=== PATIENT | female | born 1945 | race Caucasian/White ===

== ENCOUNTER 2016-03-12 14:13 | Emergency (ER) | payer MEDICARE ==
[~2016-03-12 14:13] MED LIST: Sodium Chloride Irrig Solution 250 ML BOT ONE
--- NOTE | 2016-03-12 15:24 | CT ---
NONCONTRAST HEAD CT HISTORY: The patient was kicked by a horse. COMPARISON: None. TECHNIQUE: A noncontrast head CT was performed from the skull base to the skull vertex. FINDINGS: No parenchymal hemorrhage. No extraaxial hematoma. No midline shift. The basilar cisterns are pat ent. Age appropriate atrophy. Cortical lamar white matter differentiation is preserved. The ventricles a nd sulci are patent and symmetric. There are periventricular white matter hypodensities and chronic small vessel ischemic changes of the white matter. The calvarium is intact. There is an air-fluid level in the sphenoid sinus, likely due to sinus dis ease. The mastoid air cells are adequately aerated. IMPRESSION: 1. No intracranial post traumatic sequela. 2. Chronic small vessel ischemic changes of the white matter. 3. Age-appropriate atrophy. 4. Sphenoid sinus disease. POS: [facility]
--- NOTE | 2016-03-12 15:26 | CT ---
CERVICAL SPINE CT WITHOUT CONTRAST HISTORY: The patient was kicked by a horse. Evaluate for fracture. Post traumatic pain. COMPARISON: None. TECHNIQUE: A cervical spine CT is performed without intravenous or intrathecal contrast administration. Axial images are performed from the skull base to the thoracic inlet. Sagittal coronal reformatted images are submitted for interpretation. FINDINGS: Mild curvature of the cervical spine due to patient position. The lateral masses of C1 and C2 artic ulate appropriately. Appropriate articulation of the intraarticular facets. The odontoid process i s intact. There is no prevertebral soft tissue swelling. There is no epidural hematoma. The centr al spinal canal and neural foramina are patent. Limited evaluation by technique. Upper mediastinum and lung apices are unremarkable. Vertebral body height is maintained, and there is no fracture. IMPRESSION: No fracture. POS: [facility]
[2016-03-12] MEDS ORDERED: Triple Antibiotic Oint 1 GM Packet ONE ×2 (15:29→15:50)
--- NOTE | 2016-03-12 16:00 | RAD ---
ONE VIEW CHEST: History: Patient was kicked by a horse. Comparison: 07-16-15 FINDINGS: Chest one view: Stable left sided transvenous pacemaker. Normal cardiac silhouette. The pulmonary vessels and hilu m are normal. No masses or consolidation. No pneumothorax or osseous abnormality. IMPRESSION: No acute cardiopulmonary process. POS: [facility]
--- NOTE | 2016-03-12 16:01 | RAD ---
LEFT HUMERUS TWO VIEWS: History: Patient was kicked by a horse. Post traumatic pain. Comparison: None. FINDINGS: There are chronic changes involving the left shoulder. An acute fracture is not appreciated. No pe riosteal reaction. IMPRESSION: No fracture. POS: [facility]
[2016-03-12] MEDS ORDERED: Adacel (T-DAP) 0.5 ML VIAL ONE (17:08)
[2016-03-12] MEDS ORDERED: Acetaminophen/Codeine 30-300mg Tablet ONE (17:10)
[2016-03-12] MEDS ORDERED: Cephalexin 500 MG CAP ONE (17:10)
--- NOTE | 2016-03-12 17:44 | PICIS ---
[facility] EMERGENCY RECORD TRIAGE (14:19 MDEB) PATIENT: NAME: Maximus Atwood, AGE: 70, GENDER: female, : Sun1945, TIME OF GREET: Sun Mar 12, 2016 14:13, PREFERRED LANGUAGE: Armenian, RACE: WHITE, ETHNICITY: Not or , ECODE BILLING MAP: [facility], SSN: [id number], Zip Code: [address], KG WEIGHT: 58.97, PHONE: , , , PERSON ID: [id number], PCP: UNKNOWN. (14:19 MDEB) TRIAGE NOTES: KICKED BY HORSE. (14:19 MDEB) COMPLAINT: KICKED BY HORSE. (14:19 MDEB) ADMISSION: URGENCY: 3 Urgent, ADMISSION SOURCE: Home, TRANSPORT: Walk-in, BED: TRIAGE. (14:19 MDEB) ASSESSMENT: Assessment: LARGE SKIN TEAR TO L HUMERUS, L EAR SMALL SKIN TEAR, LACERATION BEHIND L EAR. (14:19 MDEB) PAIN: Patient complains of pain described as, aching, on a scale 0-10 patient rates pain as 7. (14:19 MDEB) TRIAGE SCREENING: Patient denies suicidal ideation, Patient denies presence of domestic violence. (14:19 MDEB) PROVIDERS: TRIAGE NURSE: Gardenia Bradley RN. (14:19 MDEB) VITAL SIGNS: BP 119/88, Pulse 61, Resp 20, Temp 98.4, (Tympanic), Pain 7, O2 Sat 100, on Room Air, Time 03/12/2016 14:18. (14:18 MDEB) PREVIOUS VISIT ALLERGIES: Aleve, HYDROcodone bitartrate (bulk). (14:19 MDEB) KNOWN ALLERGIES Aleve hydrocodone (Unconfirmed) HYDROcodone bitartrate (bulk) naproxen (Unconfirmed) CURRENT MEDICATIONS atorvastatin: TABLET : Strength - 20 mg : ORAL Patient Dose: 1 mg Oral once a day.UNKNOWN DOSE. (14:31 MDEB) meloxicam: TABLET : Strength - 15 mg : ORAL Patient Dose: 1 tab(s) Oral once a day. (14:31 MDEB) propranolol: TABLET : Strength - 20 mg : ORAL Patient Dose: Unknown.UNKNOWN DOSE. (14:33 MDEB) VITAL SIGNS (14:18 MDEB) VITAL SIGNS: BP: 119/88, Pulse: 61, Resp: 20, Temp: 98.4 (Tympanic), Pain: 7, O2 sat: 100 on Room Air, Time: 03/12/2016 14:18. NURSING ASSESSMENT: PRIMARY SURVEY TRAUMA (14:33 MDEB) MECHANISM OF INJURY: Mechanism of injury blunt trauma by, direct blow, KICKED BY HORSE. &a-1R&a+25V*p+0X*[id number]*c202B*c15G*c2P*p-0X&a-25V&a+1R Name: Maximus Atwood : 1945 F70 MedRec: [id number] AcctNum: [id number] Prepared: Cristina Mar 12, 2016 18:01 by Interface Page 1 of 9 pMD [facility] EMERGENCY RECORD AIRWAY AND C-SPINE: Primary trauma survey airway and cervical spine assessment findings include airway patent, Gag reflex intact, Spine immobilized, with cervical collar, Cervical spine tenderness, diffusely, ASPEN C-COLLAR APPLIED. BREATHING: Primary trauma survey breathing assessment findings include trachea midline, Breath sounds equal. CIRCULATION: Primary trauma survey circulation assessment findings include palpable pulse, Heart sounds normal, Systolic blood pressure greater than 100, Capillary refill less than 2 seconds. DISABILITY: Primary trauma survey disability assessment findings include patient alert and oriented to person, place and time, Pupils equally round and reactive to light, Left pupil 3 mm in size, Right pupil 3 mm in size, Movement to all extremities, GCS:, Eye opening: (4) - Spontaneous, Verbal: (5) - Oriented/conversive, Motor: (6) - Obeys commands/Spontaneous, GCS Total: 15. NOTES: Emotional support needed and given, Patient tolerated procedure well. NURSING ASSESSMENT: SECONDARY SURVEY TRAUMA (14:37 MDEB) CONSTITUTIONAL: Patient arrives, via hospital wheelchair, REMOVED FROM PICKUP WITH WHEELCHAIR - PT AMBULATORY, Gait steady, History obtained from patient, Patient appears, anxious, Patient cooperative, Patient alert, Oriented to person, place and time, Skin warm, Skin dry, Skin normal in color, Mucous membranes pink, Mucous membranes moist, Patient is well-groomed, Patient complains of L ARM PAIN, PAIN TO L EAR. PAIN: aching pain, on a scale 0-10 patient rates pain as 7, Pain exacerbated by nothing, Nothing has been tried to alleviate the pain. SKIN: Skin assessment findings include skin warm, Skin dry, Skin normal in color, Inspection findings include ecchymosis, to L EAR, Inspection findings include signs of trauma, SKIN TEARS ET LACERATION. PAIN TO L HUMERUS ET EAR, Notes: LARGE SKIN APPROX 12 CM TO L HUMERUS. SKIN TO L SHAYE APPROX 1.5 CM. LACERATION BEHIND EAR APPROX 4 CM. BURN LOCATION: N/A. NEURO: Pupils equally round and reactive to light, Left pupil 3 mm in size, Right pupil 3 mm in size, Able to close eyes, Face symmetrical, Speech normal, GCS:, Eye opening: (4) - Spontaneous, Verbal: (5) - Oriented/conversive, Motor: (6) - Obeys commands/Spontaneous, GCS Total: 15, Hand grasps equal, Foot press equal, Notes: SLIGHT PAIN TO NECK - IMMOBILZED WITH C-COLLAR. EYES: Eye assessment findings include orbits normal, Eye lids normal, Conjunctiva normal, Sclera normal, Cornea clear, Iris normal, Pupils equally round and reactive to light. DENTAL: Dental assessment findings include mouth normal, Teeth normal. HEAD TRAUMA: Inspection findings include laceration, to &a-1R&a+25V*p+0X*d0167T*c202B*c15G*c2P*p-0X&a-25V&a+1R Name: Maximus Atwood : 1945 F70 MedRec: [id number] AcctNum: [id number] Prepared: Cristnia Mar 12, 2016 18:01 by Interface Page 2 of 9 pMD [facility] EMERGENCY RECORD BEHIND L EAR, length (cm) 3, bleeding controlled. NECK: Neck assessment findings include trachea midline, Pain with range of motion, head immobilization device, with a cervical collar. NECK TRAUMA: Neck trauma assessment findings include trachea midline. RESPIRATORY/CHEST: Breath sounds clear, Respiratory assessment findings include respiratory effort easy, Respirations regular, Conversing normally, Neck and chest exam findings include trachea midline, Chest expansion equal, Chest movement symmetrical. CARDIOVASCULAR: Cardiovascular assessment findings include heart rate normal. THORACIC TRAUMA: Thoracic trauma assessment findings include chest movement symmetrical. ABDOMEN: Abdomen assessment findings include abdomen symmetrical, Abdomen soft. GENITOURINARY FEMALE: Notes: DEFERRED AT THIS TIME. LEFT UPPER EXTREMITY: Left upper extremity assessment findings include capillary refill less than 2 seconds, Skin color normal to hand, Skin temperature to hand warm, Distal sensation intact, Muscle tone normal, Notes: LARGE SKIN TEAR TO L HUMERUS. RIGHT UPPER EXTREMITY: Right upper extremity assessment findings include capillary refill less than 2 seconds, Skin color normal to hand, Skin temperature to hand warm, Distal sensation intact, Muscle tone normal. UPPER EXTREMITY TRAUMA: Left upper extremity assessment findings include signs of trauma, SKIN TEARS. LEFT LOWER EXTREMITY: Left lower extremity assessment findings include capillary refill less than 2 seconds, Skin color normal, Skin temperature warm, Distal sensation intact, Muscle tone normal. RIGHT LOWER EXTREMITY: Right lower extremity assessment findings include capillary refill less than 2 seconds, Skin color normal, Skin temperature warm, Distal sensation intact, Muscle tone normal. PSYCH/SOCIAL: Psychiatric/social assessment findings include affect normal. NOTES: Emotional support needed and given, Patient tolerated procedure well. SAFETY: Side rails up, Cart/Stretcher in lowest position, Family at bedside, Call light within reach, Hospital ID band on. NURSING PROCEDURE: NURSE NOTES (15:12 MDEB) NURSES NOTES: Notes: DR HELTON CLEARED C-SPINE. C-COLLAR REMOVED BY [employer]. NURSING PROCEDURE: TRANSPORT TO TESTS (14:35 MDEB) PATIENT IDENTIFIER: Patient actively involved in identification process, Patient's identity verified by patient stating name, Patient's identity verified by hospital ID bracelet. TRANSPORT TO TESTS: Transport indicated to facilitate diagnosis, Patient transported to CT scan, via cart, Accompanied by x-ray &a-1R&a+25V*p+0X*f2580I*c202B*c15G*c2P*p-0X&a-25V&a+1R Name: Maximus Atwood : 1945 F70 MedRec: [id number] AcctNum: [id number] Prepared: Cristina Mar 12, 2016 18:01 by Interface Page 3 of 9 pMD [facility] EMERGENCY RECORD occupational therapy technician. NOTES: Emotional support needed and given, Patient tolerated procedure well. ORDER DETAILS Order Name: CLEAN WOUND, Status: Active, Time: 17:13 03/12/2016, User: SULTANA, - Ordered for: MD Helton Lloyd, - Entered by: MD Helton Lloyd - Sun Mar 12, 2016 17:13, - Quantity: 1, Order Name: CT Brain WO Con, Status: Active, Time: 14:32 03/12/2016, User: SULTANA, - Ordered for: MD Helton Lloyd, - Entered by: MD Helton Lloyd - Sun Mar 12, 2016 14:32, - Quantity: 1, Order Name: CT Cervical Spine WO Con, Status: Active, Time: 14:32 03/12/2016, User: SULTANA, - Ordered for: MD Helton Lloyd, - Entered by: MD Helton Lloyd - Sun Mar 12, 2016 14:32, - Quantity: 1, Order Name: XR Humerus Lt 2 View STANDARD, Status: Active, Time: 14:30 03/12/2016, User: SULTANA, - Ordered for: MD Helton Lloyd, - Entered by: MD Helton Lloyd - Sun Mar 12, 2016 14:30, - Quantity: 1, Order Name: XR Ribs Lt>=2 View W/PA CXR, Status: Canceled, Time: 15:19 03/12/2016, User: System, - Ordered for: MD Helton Lloyd, - Entered by: MD Helton Lloyd - Sun Mar 12, 2016 14:31, - Quantity: 1. MEDICATION ADMINISTRATION SUMMARY Drug Name: Adacel(Tdap Adolesn/Adult)(PF), Dose Ordered: 0.5 mL, Route: Intramuscular, Status: Ordered, Time: 17:08 03/12/2016, Drug Name: *acetaminophen-codeine, Dose Ordered: 2 tab(s), Route: Oral, Status: Ordered, Time: 17:01 03/12/2016, Drug Name: Cefanex, Dose Ordered: 500 mg, Route: Oral, Status: Ordered, Time: 17:00 03/12/2016, *Additional information available in notes, Detailed record available in Medication Service section. MEDICATION SERVICE acetaminophen-codeine: Order: acetaminophen-codeine (acetaminophen/codeine phosphate) - Dose: 2 tab(s) : Oral POTENTIAL ALLERGY REACTION: 'HYDROcodone bitartrate (bulk) [hydrocodone/hydrocodone bitartrate]' - Reviewed with patient, pt says can safely take this medicine Schedule: Now Notes: each tab 30-300 &a-1R&a+25V*p+0X*w1942N*c202B*c15G*c2P*p-0X&a-25V&a+1R Name: Maximus Atwood : 1945 F70 MedRec: [id number] AcctNum: [id number] Prepared: Cristina Mar 12, 2016 18:01 by Interface Page 4 of 9 pMD [facility] EMERGENCY RECORD Ordered by: Rusty Helton MD Entered by: MD Cristina Garcia Mar 12, 2016 17:01 , Acknowledged by: LYLE Rodriguez Mar 12, 2016 17:10. Adacel(Tdap Adolesn/Adult)(PF): Order: Adacel(Tdap Adolesn/Adult)(PF) (diphth,pertuss(acell),tet vac/preservative free) - Dose: 0.5 mL : Intramuscular Schedule: Now Ordered by: Rusty Helton MD Entered by: MD Cristina Garcia Mar 12, 2016 17:08 . Cefanex: Order: Cefanex (cephalexin monohydrate) - Dose: 500 mg : Oral Schedule: Now Ordered by: Rusty Helton MD Entered by: MD Cristina Garcia Mar 12, 2016 17:00 , Acknowledged by: LYLE Rodriguez Mar 12, 2016 17:10. 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 left mid humerus and then upward, catching the let ear and lacerating it. the humerus is very painful and there is a significant skin tear on the outer, upper humerus. also has a small, superficial lac behind the left ear as well as a 4.5 cm horizonal tear of the lateral pinna (through and through). HISTORIAN: History provided by patient. MECHANISM OF INJURY: Known mechanism. LOCATION: Symptoms are localized. QUALITY: Pain is dull in nature, described as aching. SEVERITY: Maximum severity of symptoms moderate, Currently symptoms are moderate. TIME COURSE: Sudden onset of symptoms, just prior to arrival, There has been no change in the patient's symptoms over time. ASSOCIATED WITH: No associated symptoms, Associated with ONLY ABOVE. EXACERBATED BY: Patient's condition exacerbated by ACTIVITY. RELIEVED BY: Patient's condition relieved by nothing. ROS CONSTITUTIONAL: Negative constitutional review of systems. (15:43 LLDO) EYES: Negative eye review of systems, Historian denies eye pain, denies eye redness, denies eye discharge. (15:54 LLDO) ENT: Negative ears, nose, throat review of systems, Historian denies epistaxis, denies rhinorrhea, denies sinus pain, denies sore throat. (15:54 LLDO) CARDIOVASCULAR: Negative cardiovascular review of systems, Historian denies chest pain, no radiation, Historian denies diaphoresis, denies syncope. (15:54 LLDO) &a-1R&a+25V*p+0X*g7813Q*c202B*c15G*c2P*p-0X&a-25V&a+1R Name: Maximus Atwood : 1945 F70 MedRec: [id number] AcctNum: [id number] Prepared: Cristina Mar 12, 2016 18:01 by Interface Page 5 of 9 pMD [facility] EMERGENCY RECORD RESPIRATORY: Negative respiratory review of systems, Historian denies cough, denies shortness of breath, denies sputum. (15:54 LLDO) GI: Negative gastrointestinal review of systems, Historian denies abdominal pain, denies constipation, denies diarrhea, denies nausea, denies vomiting. (15:54 LLDO) GENITOURINARY FEMALE: Negative genitourinary review of systems, Historian denies dysuria, denies frequency, denies urgency. (15:54 LLDO) MUSCULOSKELETAL: Historian reports injury, reports myalgias. (15:43 LLDO) SKIN: Historian reports skin changes, reports skin lesions. (15:43 LLDO) NEUROLOGIC: Negative neurologic review of systems, Historian denies confusion, denies dizziness, denies focal weakness, denies mental status changes. (15:54 LLDO) HEMO/LYMPHATIC: Normal hematologic/lymphatic system review, Historian denies abnormal blood clotting, denies gum bleeding, denies petechiae. (15:54 LLDO) ALLERGIC/IMMUNOLOGIC: Normal allergy/immunologic system review, Historian denies eczema, denies environmental allergies, denies food allergies. (15:54 LLDO) PSYCHIATRIC: Negative psychiatric review of systems, Historian denies alcohol abuse, denies anxiety, denies depression, denies drug abuse, denies hallucinations. (15:54 LLDO) NOTES: All systems reviewed, negative except as described above. (15:43 LLDO) PAST MEDICAL HISTORY MEDICAL HISTORY: Tetanus not up to date, Tetanus not up to date, Past medical history includes cardiac history, Past medical history includes history of hyperlipidemia, high cholesterol. (14:19 MDEB) FEMALE SURGICAL HISTORY: PACER WILBERT KNEE CARTILAGE REPLACEMENT R SHOULDER. (14:19 MDEB) PSYCHIATRIC HISTORY: Notes: DENIES. (14:19 MDEB) SOCIAL HISTORY: Patient denies alcohol use, Patient denies drug use, Patient has no smoking history. (14:19 MDEB) NOTES: Nursing records reviewed, Agree with nursing records, Medication list reviewed. (15:53 LLDO) PHYSICAL EXAM CONSTITUTIONAL: Vital signs reviewed, Patient afebrile, Pulse normal, Blood pressure normal, Respiratory rate normal, Patient appears, uncomfortable, Patient appears in pain, in moderate pain distress, INTERMITTENTLY SEVERE, Patient alert and oriented to person, place and time. (15:44 LLDO) HEAD: Head exam included findings of, IN HPI, normocephalic. (15:44 LLDO) &a-1R&a+25V*p+0X*s3350M*c202B*c15G*c2P*p-0X&a-25V&a+1R Name: Maximus Atwood : 1945 F70 MedRec: [id number] AcctNum: [id number] Prepared: Cristina Mar 12, 2016 18:01 by Interface Page 6 of 9 pMD [facility] EMERGENCY RECORD EYES: Eye exam normal, Eye exam included findings of eyelids normal to inspection, Pupils equally round and reactive to light, Extraocular muscles intact. (15:54 LLDO) ENT: Ear exam included findings of, See HPI. (15:44 LLDO) NECK: Neck exam normal, Neck exam included findings of normal range of motion, Trachea midline, no meningeal signs, no tenderness. (15:54 LLDO) RESPIRATORY CHEST: Respiratory exam included findings of no respiratory distress, Breath sounds clear, Chest exam included findings of chest movement symmetrical, Chest expansion equal, Tenderness, to the left lateral chest, Palpation of chest reproduces symptoms, PACEMAKER BUMP LEFT UPPER CHEST. (15:44 LLDO) CARDIOVASCULAR: Cardiovascular assessment normal, Cardiovascular exam included findings of heart rate regular rate and rhythm, Heart sounds normal. (15:54 LLDO) ABDOMEN FEMALE: Abdominal exam normal, Abdominal exam included findings of abdomen nontender, Bowel sounds normal, no peritoneal signs. (15:54 LLDO) BACK: Back exam normal, Back exam included findings of normal inspection, range of motion normal. (15:54 LLDO) UPPER EXTREMITY: Upper extremity exam included findings of inspection abnormal, abrasions present, laceration(s) present, Range of motion normal, Motor strength, Sensation intact, Brachial pulse normal, Radial pulse normal. (15:44 LLDO) LOWER EXTREMITY: Lower extremity exam normal, Lower extremity exam included findings of inspection normal, Range of motion normal. (15:54 LLDO) NEURO: Neuro exam normal, Neuro exam findings include patient oriented to person, place and time, Speech normal, [place] coma scale 15. (15:54 LLDO) SKIN: Skin exam normal, Skin exam included findings of skin warm, dry, and normal in color, no rash. (15:54 LLDO) PSYCHIATRIC: Psychiatric exam normal, Psychiatric exam included findings of patient oriented to person place and time, Normal affect. (15:54 LLDO) EVENTS TRANSFER: Triage to Emergency Triage. (Cristina Mar 12, 2016 14:19 MDEB) Emergency Triage to Main ED -02. (14:26 MDEB) Removed from Emergency Main ED -02. (17:23 MDEB) LACERATION-SINGLE REPAIR (17:03 LLDO) TIMEOUT: Side and/or site verified, Patient identification confirmed, Sterile procedures observed. LACERATION REPAIR: Side and/or site verified, Patient identification confirmed, Sterile procedures observed, Verbal consent &a-1R&a+25V*p+0X*d9547D*c202B*c15G*c2P*p-0X&a-25V&a+1R Name: Maximus Atwood : 1945 F70 MedRec: [id number] AcctNum: [id number] Prepared: Cristina Mar 12, 2016 18:01 by Interface Page 7 of 9 pMD [facility] EMERGENCY RECORD obtained, Wound contaminated with, Deep structures not involved, no bony deformity, no edema, no ecchymosis, no tendon involvement, no joint involvement, Wound not near a neurovascular bundle, No pulse deficit, Capillary refill less than 2 seconds, Distal motor intact, Distal sensation intact, No signs of compartment syndrome, Local infiltration with, 2% LIDOCAINE without epinephrine, 4mL, Patient prepped and draped in usual sterile fashion, Wound irrigated with normal saline, Simple repair of laceration, to the ear, SEE HPI, total length 4.5 cm, Skin layer closed, using 5.0, prolene suture, greater than 10 sutures, running, After procedure, wound well approximated, antibiotic ointment applied, dressing applied, No complications, Tetanus status up to date, Patient tolerated the procedure well, 13 running lock sutures, No foreign body present. PROBLEM LIST No recorded problems DIAGNOSIS (16:57 LLDO) FINAL: PRIMARY: Upper arm contusion, ADDITIONAL: Ear pinna laceration, left. DISPOSITION PATIENT: Disposition Type: Discharge, Disposition: *Discharge Home. (16:57 LLDO) Patient left the department. (17:23 MDEB) INSTRUCTION (17:06 LLDO) DISCHARGE: LACERATION, FACE (SUTURE OR TAPE). FOLLOWUP: Rob ESPAÑA, LAITH, Obstetrics and Gynecology, [address] [place] [address], [phone], Follow up with Primary Care Physician in 10 days. SPECIAL: Follow-up with your PCP Suture removal in 10 days. PRESCRIPTION (16:58 LLDO) Keflex: CAPSULE (HARD, SOFT, ETC.) : 500 mg : ORAL : Quantity: 1 Unit: cap(s) Route: ORAL Schedule: 3 times a day Dispense: 30 May substitute. Refills: No Refills . NOTES: No Refills. Tylenol-Codeine #3: TABLET : 300 mg-30 mg : ORAL : Quantity: 1-2 Unit: tab(s) Route: ORAL Schedule: every 4 hours prn Dispense: 30 Unit: tab(s) May substitute. Refills: No Refills POTENTIAL ALLERGY REACTION: 'HYDROcodone bitartrate (bulk) [hydrocodone/hydrocodone bitartrate]' Override Rationale: Reviewed with patient, pt says can safely take this medicine. NOTES: ^s=No Refills &a-1R&a+25V*p+0X*x9501Z*c202B*c15G*c2P*p-0X&a-25V&a+1R Name: Maximus Atwood : 1945 F70 MedRec: [id number] AcctNum: [id number] Prepared: [place] Mar 12, 2016 18:01 by Interface Page 8 of 9 pMD [facility] EMERGENCY RECORD No Refills. IMAGING TETANUS CONSENT: Image captured from scanner. (17:17 MDEB) *DISCHARGE INSTRUCTIONS RECEIPT: Image captured from scanner. (17:23 MDEB) *SUPPLY CHARGE SHEET: Image captured from scanner. (17:23 MDEB) ADMIN DIGITAL SIGNATURE: MD Helton Lloyd. (16:11 LLDO) MD Helton Lloyd. (17:07 LLDO) MD Helton Lloyd. (17:50 LLDO) Mccord: LLDO=MD Helton Lloyd MDEB=LYLE Bradley, [place] &a-1R&a+25V*p+0X*r1860I*c202B*c15G*c2P*p-0X&a-25V&a+1R Name: Maximus Atwood : 1945 F70 MedRec: [id number] AcctNum: [id number] Prepared: Cristina Mar 12, 2016 18:01 by Interface Page 9 of 9 pMD [facility] MEDICATION RECONCILIATION You were seen in the Emergency Department on: SunMar 12, 2016 KNOWN ALLERGIES Aleve hydrocodone (Unconfirmed) HYDROcodone bitartrate (bulk) naproxen (Unconfirmed) HOME MEDICATIONS CONTINUE PRESCRIBED atorvastatin : TABLET : Strength - 20 mg : ORAL Continue as prescribed Patient had been takin mg Oral once a day. Comment: UNKNOWN DOSE. meloxicam : TABLET : Strength - 15 mg : ORAL Continue as prescribed Patient had been takin tab(s) Oral once a day. propranolol : TABLET : Strength - 20 mg : ORAL Continue as prescribed Patient had been taking: Dose unknown Comment: UNKNOWN DOSE. Notes from the emergency department Reviewed with family Reviewed with patient PRESCRIPTIONS (2) Printed (2) Keflex : CAPSULE (HARD, SOFT, ETC.) : 500 mg : ORAL Quantity: 1, Unit: cap(s), Route: ORAL, Schedule: 3 times a day, Dispense: 30 &a-1R&a+25V*p+0X*m0496L*c202B*c15G*c2P*p-0X&a-25V&a+1R Name: Maximus Atwood : 1945 F70 MedRec: [id number] AcctNum: [id number] Prepared: Cristina Mar 12, 2016 18:01 by Interface pMD PAY[facility]D
== END 2016-03-12 17:20 | disposition home or self-care (01) ==
LOC: MADERS 14:13
DX: S01.312A Laceration without foreign body of left ear, initial encounter (principal); S41.119A Laceration without foreign body of unspecified upper arm, initial encounter; E78.00 Pure hypercholesterolemia, unspecified; E78.5 Hyperlipidemia, unspecified; Z79.2 Long term (current) use of antibiotics; Z79.899 Other long term (current) drug therapy; Z96.653 Presence of artificial knee joint, bilateral; W55.12XA Struck by horse, initial encounter
CPT/HCPCS: 70450; 71010; 72125; 90471; 90715; J2001

== ENCOUNTER 2016-04-27 10:55 | Emergency (ER) | payer MEDICARE ==
--- NOTE | 2016-04-27 12:23 | CT ---
CT OF THE BRAIN WITHOUT CONTRAST: Date: 04/27/16 COMPARISON: 03/12/16. HISTORY: Kicked by a horse, laceration to head. TECHNIQUE: Multiple contiguous axial images were obtained in a CT of the brain without contrast. FINDINGS: There are scattered hypodensities in the subcortical and periventricular white matter, likely second charlie to small vessel ischemic disease. No large confluent infarction is seen. There is no evidence of hydrocephalus, intracranial hemorrhage, or extra-axial fluid collections. There is soft tissue swelling in the left frontal scalp. Skin armand are seen in the right parietal scalp. The underlying calvarium is unremarkable. The paranasal sinuses and mastoid air cells are we ll aerated. IMPRESSION: No evidence of acute intracranial abnormality. POS: [facility]
[2016-04-27] MEDS ORDERED: Ondansetron HCl/PF 4 MG/2 ML Vial ONE (13:37)
[2016-04-27] MEDS ORDERED: diphenhydrAMINE HCl 50 MG/ML 1 ML VIAL ONE (13:37)
--- NOTE | 2016-04-27 14:14 | RAD ---
3 VIEWS LEFT HAND: Date: 04/27/16 COMPARISON: None. HISTORY: Left hand pain in the joints. FINDINGS: Three views of the left hand show ulnar subluxation and possibly dislocation of the middle finger me tacarpophalangeal joint. The index finger also shows mild subluxation in the metacarpophalangeal joe nt. No fracture is seen. No focal soft tissue swelling is seen. IMPRESSION: Subluxation/dislocation of the index and middle fingers at the metacarpophalangeal joints. POS: [facility]
--- NOTE | 2016-04-27 14:14 | RAD ---
FOUR VIEWS OF THE LEFT KNEE: COMPARISON: None. HISTORY: Fall with lateral knee pain. FINDINGS: Four views of the left knee show the patient to be status post medial knee arthroplasty. There is m oderate to severe joint space narrowing and osteophyte formation in the lateral femorotibial compart ment and in the patellofemoral compartment. There appears to be a loose intracapsular osseous body along the lateral femorotibial compartment. No knee effusion is seen. There is no evidence of acut e fracture or dislocation. IMPRESSION: Moderate to severe left knee osteoarthritis without acute osseous abnormality. POS: [facility]
[2016-04-27] MEDS ORDERED: Triple Antibiotic Oint 1 GM Packet ONE (14:32)
--- NOTE | 2016-04-27 14:32 | CT ---
CT CERVICAL SPINE WITH CORONAL AND SAGITTAL REFORMATIONS: HISTORY: Kicked in the head by horse, neck pain. FINDINGS/IMPRESSION: Comparison is made with the exam of 03/12/16. Mild degenerative changes are present. No acute fracture or subluxation is seen. 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 POS: [facility]
== END 2016-04-27 14:50 | disposition home or self-care (01) ==
LOC: MADERS 10:55
DX: S01.01XA Laceration without foreign body of scalp, initial encounter (principal); S61.412A Laceration without foreign body of left hand, initial encounter; X58.XXXA Exposure to other specified factors, initial encounter
CPT/HCPCS: 12011; 70450; 72125; 96374; 96375; J1200; J2270; J2405

== ENCOUNTER 2016-07-15 10:06 | Emergency (ER) | payer MEDICARE | END 2016-07-15 10:39 | disposition home or self-care (01) | LOC: MADERS 10:06 | DX: L03.213 Periorbital cellulitis (principal); I10 Essential (primary) hypertension; E78.00 Pure hypercholesterolemia, unspecified; Z79.899 Other long term (current) drug therapy | CPT/HCPCS: 99282 ==

== ENCOUNTER 2016-08-07 07:37 | Outpatient (CLI) | payer MEDICARE ==
[2016-08-07 08:46] LABS: Cardiac Risk 3.8 (Less than 4.5)
== END 2016-08-07 07:38 | disposition home or self-care (01) ==
LOC: MADLAB 07:37
PROVIDERS: ATTEND Internal Medicine Cardiovascular Disease
DX: Z51.81 Encounter for therapeutic drug level monitoring (principal); Z79.899 Other long term (current) drug therapy
CPT/HCPCS: 36415; 80061; 84450; 84460

== ENCOUNTER 2017-08-06 06:46 | Outpatient (CLI) | payer MEDICARE ==
[2017-08-06 07:35] LABS: ALT (SGPT) 28 U/L (8-55); AST (SGOT) 26 U/L (5-34); Albumin 4.1 g/dL (3.4-4.8); Alkaline Phosphatase 65 U/L (40-150); Anion Gap 15 mmol/L (10-20); BUN (Urea Nitrogen) 16 mg/dL (9.8-20.1); Bilirubin, Total 0.7 mg/dL (0.2-1.2); Calc. Creatinine Clearance 0 mL/min (70-130); Calcium 9.5 mg/dL (7.8-10.44); Carbon Dioxide 24 mmol/L (23-31); Cardiac Risk 3.5 (Less than 4.5); Chloride 105 mmol/L (98-107); Cholesterol 133 mg/dl (< 200 Desired); Estimated GFR-MDRD 73; Globulin 2.8 g/dL (2.4-3.5); Glucose 82 mg/dL (83-110); HDL Cholesterol 38 mg/dL (>60 Neg Risk); LDL Cholesterol, Calculated 71 mg/dL; Potassium 4.1 mmol/L (3.5-5.1); Protein, Total 6.9 g/dL (6.0-8.3); Sodium 140 mmol/L (136-145); Triglycerides 120 mg/dL (Less than 150)
== END 2017-08-06 06:47 | disposition home or self-care (01) ==
LOC: MADLAB 06:46
PROVIDERS: ATTEND Internal Medicine Cardiovascular Disease
DX: E78.2 Mixed hyperlipidemia (principal)
CPT/HCPCS: 36415; 80053; 80061

== ENCOUNTER 2019-10-24 12:10 | Emergency (ER) | payer MEDICARE ==
[~2019-10-24 12:10] MED LIST changes: +Iopamidol 370 76% 100 ML VIAL ONE; -Sodium Chloride Irrig Solution 250 ML BOT ONE
[2019-10-24 12:47] LABS: #Basophils 0.1 thou/uL (0.0-0.2); #Eosinphils 0.1 thou/uL (0.0-0.7); #Lymphocytes 2.1 thou/uL (1.20-3.40); #Monocytes 0.5 thou/uL (0.11-0.59); #Neutrophils 4.8 thou/uL (1.40-6.50); %Basophils 0.9 % (0.0-1.0); %Eosinophils 1.6 % (0.0-10.0); %Lymphocytes 27.4 % (21.0-51.0); %Monocytes 6.7 % (0.0-10.0); %Neutrophils 63.4 % (42.0-75.0); Mean Corpuscular HGB CONC 32.7 g/dL (32.0-36.0); Mean Corpuscular Hemoglobin 30.9 pg (27.0-31.0); Mean Corpuscular Volume 94.5 fL (78.0-98.0); Mean Platelet Volume 10.3 fL (7.4-10.4); Platelet Count 202 thou/uL (130-400); RBC Distribution Width 11.2 % (11.5-14.5); White Blood Cell (WBC) Count 7.6 thou/uL (4.8-10.8)
[2019-10-24 12:59] LABS: ALT (SGPT) 41 U/L (8-55); AST (SGOT) 38 U/L (5-34); Albumin 4.5 g/dL (3.4-4.8); Alkaline Phosphatase 77 U/L (40-110); Anion Gap 15 mmol/L (10-20); BUN (Urea Nitrogen) 18 mg/dL (9.8-20.1); Bilirubin, Total 0.9 mg/dL (0.2-1.2); Calc. Creatinine Clearance 0 mL/min (70-130); Calcium 9.6 mg/dL (7.8-10.44); Carbon Dioxide 24 mmol/L (23-31); Chloride 102 mmol/L (98-107); Estimated GFR-MDRD 69; Globulin 2.9 g/dL (2.4-3.5); Glucose 90 mg/dL (83-110); Potassium 4.3 mmol/L (3.5-5.1); Protein, Total 7.4 g/dL (6.0-8.3); Sodium 137 mmol/L (136-145)
[2019-10-24 13:35] LABS: Bilirubin Negative (Negative); Blood, Urine Negative (Negative); Clarity Clear (Clear); Glucose, Urine (Dipstick) Negative (Negative); Ketone, Urine Trace mg/dL (Negative); Leukocyte Trace (Negative); Nitrite Negative (Negative); Protein, Urine (Dipstick) Trace mg/dL (Neg-Trace); Specific Gravity, Urine 1.025 (1.005-1.030)
[2019-10-24 13:38] LABS: Bacteria/HPF 2+ HPF (None Seen); RBC/HPF 0-3 HPF (0-3); Squamous Epithelial 0-3 HPF (0-3)
--- NOTE | 2019-10-24 13:48 | CT ---
CT Cervical Spine WO Con Indication: Bucked off horse with neck pain COMPARISON: None. FINDINGS: Fracture: None. Spinal alignment: No acute malalignment. Craniocervical junction: Within normal limits. Vertebral body heights: Maintained. Cervical spine degenerative change: There is mild multilevel disc degenerative and facet osteoarthrit ic change of the cervical spine. Lung apices: There is a small left apical pneumothorax. IMPRESSION: 1. No acute fracture or subluxation. 2. Small left apical pneumothorax. 3. Findings called Dr. Ahmadi at 1:44 PM on 10/24/2019
[2019-10-24] MEDS ORDERED: Ondansetron PF 4 MG/2 ML Vial ONE (13:51)
[2019-10-24] MEDS ORDERED: Ketorolac Tromethamine 30 MG/ML VIAL ONE (13:51)
--- NOTE | 2019-10-24 13:58 | CT ---
CT OF THE CHEST, ABDOMEN AND PELVIS WITH IV CONTRAST INDICATION: Fall from horse with left-sided chest pain and left hip pain and right thigh pain COMPARISON: None. FINDINGS: CHEST: Lungs:No visible contusion. There is subsegmental volume loss in the lingula and left lower lobe. Heart and great vessels:No acute traumatic injury seen. Pleural space: Small moderate size anterior and apical left hemopneumothorax Additional findings: Multi lead pacemaker overlying left chest wall. ABDOMEN: Liver:Normal appearing. Spleen:Normal appearing. Pancreas:Normal appearing. Adrenal Glands:There is an 11 mm nodule in the right adrenal gland. Left adrenal gland is normal-appe aring. Kidneys:Normal appearing. Aorta:There are mild vascular calcifications seen involving the visualized vasculature. Additional findings: No free fluid or free air. PELVIS: Bowel:Normal appearing. Bladder:Normal appearing. Reproductive structures:Fibroid uterus Rectum and perirectal soft tissues:Normal appearing. Additional findings: No free fluid or free air. OSSEOUS STRUCTURES: There are minimally displaced lateral left fourth and fifth rib fractures. There is prominent contusi on overlying the left posterior lateral torso. There is thoracolumbar scoliosis. There is diffuse osteopenia. There is postsurgical change of a right rotator cuff repair. There bilateral os acromiale days. There is scattered degenerative and osteoarthritic change. IMPRESSION: 1. Small moderate size anterior and apical left hemopneumothorax. Pneumothorax findings were called t o Dr. Raya with the Cspine findings 2. Left lateral fourth and fifth rib fractures. 3. Prominent soft tissue contusion involving the posterior lateral left flank. 4. Right adrenal nodule incompletely characterized. Nonemergent follow-up CT the abdomen with and wit hout contrast may be helpful for further characterization. 5. Fibroid uterus
--- NOTE | 2019-10-24 14:10 | CT ---
CT BRAIN WITHOUT CONTRAST: 10/24/19 HISTORY: Trauma, no loss of consciousness. Head injury. FINDINGS: Comparison made with exam of 04/27/16. Changes of chronic small vessel ischemic disease in the periventricular white matter again seen. The ventricular size is appropriate and the basilar cisterns patent. No evidence of acute infarct, hemorrhage, midline shift or abnormal extra-axial fluid collections are seen. The bony calvarium is intact. There is mucosal disease in the left ethmoid sinus. The remainde r of the visualized paranasal sinuses are well aerated. The mastoid air cells are also well aerated. IMPRESSION: No CT evidence of acute intracranial process. POS: [facility]
[2019-10-24] MEDS ORDERED: Sodium Chloride 0.9% 1,000 ML ONE (15:18)
[2019-10-24] MEDS ORDERED: Morphine 10 MG/ML VIAL ONE (15:30)
== END 2019-10-24 15:55 | disposition short-term general hospital (02) ==
LOC: MADERS 12:10
DX: S22.42XA Multiple fractures of ribs, left side, initial encounter for closed fracture (principal); J94.2 Hemothorax; M54.2 Cervicalgia; M25.552 Pain in left hip; M54.5 Low back pain; I10 Essential (primary) hypertension; E78.00 Pure hypercholesterolemia, unspecified; V80.010A Animal-rider injured by fall from or being thrown from horse in noncollision accident, initial encounter
CPT/HCPCS: 36415; 70450; 71260; 72125; 74177; 80053; 81003; 81015; 85025; 93005; 94760; 96374; 96375; J1885; J2270; J2405; J7050; Q9967

== ENCOUNTER 2019-10-29 09:30 | Outpatient (CLI) | payer MEDICARE ==
--- NOTE | 2019-10-29 09:55 | RAD ---
XR Chest Pa & Lat STANDARD HISTORY: Rib fractures, chest pain COMPARISON: 10/25/2019 FINDINGS: A small left apical pneumothorax is unchanged. The small left pleural effusion with basilar atelectatic change is also stable. Left-sided pacemaker device remains in place. The heart size stable. The right lung is clear. IMPRESSION: Stable exam.
== END 2019-10-29 09:31 | disposition home or self-care (01) ==
LOC: MADRAD 09:30
PROVIDERS: ATTEND Surgery
DX: S22.39XA Fracture of one rib, unspecified side, initial encounter for closed fracture (principal)
CPT/HCPCS: 71046

== ENCOUNTER 2019-11-12 10:15 | Outpatient (CLI) | payer MEDICARE ==
--- NOTE | 2019-11-12 13:52 | RAD ---
TWO VIEW CHEST: 11/12/19 HISTORY: Rib fractures. COMPARISON: 10/29/19. Blunting of the left CP angle is seen which may represent residual effusion and/or left basilar atele ctasis. The lungs otherwise appear clear. No definite pneumothorax seen on today's exam. Heart and me diastinum unremarkable. Pacemaker leads unchanged. IMPRESSION: Blunting of the left CP angle may represent some residual chronic parenchymal and pleural change. No acute interval change when compared to prior study. No definite pneumothorax seen today. POS: [facility]
== END 2019-11-12 10:16 | disposition home or self-care (01) ==
LOC: MADRAD 10:15
PROVIDERS: ATTEND Surgery
DX: S22.39XA Fracture of one rib, unspecified side, initial encounter for closed fracture (principal)
CPT/HCPCS: 71046